=== PATIENT | female | born 1965 | race Caucasian/White ===

== ENCOUNTER 2017-03-10 17:51 | Emergency (ER) | payer OTHER ==
[~2017-03-10] VITALS: Ht 157.5 cm; Wt 71.7 kg
[2017-03-10] MEDS ORDERED: SYNTHROID50 MCG (18:25)
[2017-03-10] MEDS ORDERED: VERAPAMIL ER180 MG (18:26)
== END 2017-03-11 03:51 | disposition home or self-care (01) ==
LOC: ER 17:51
DX: K29.70 Gastritis, unspecified, without bleeding (principal)

== ENCOUNTER → 2018-03-08 | Emergency (ER) | payer OTHER ==
[~2018-03-08] VITALS: Ht 157.5 cm; Wt 68.9 kg
[~2018-03-08] MED LIST: AMBIEN10 MG; CYMBALTA20 MG; SYNTHROID50 MCG; VERAPAMIL ER180 MG
== END | disposition home or self-care (01) ==
LOC: ER 11:08
DX: K21.9 Gastro-esophageal reflux disease without esophagitis (principal)